=== PATIENT | male | born 1955 | race African-American/Black ===

== ENCOUNTER 2019-03-29 05:31 | Emergency (ER) | payer MEDICARE, MEDICAID ==
[~2019-03-29] VITALS: Ht 182.9 cm; Wt 114.0 kg
[~2019-03-29 05:31] MED LIST: ALLO100T PO; CARV6.2548 PO; FURO80TA3 PO; POTA20TA12 PO; SIMV20TA6 PO; TAMS0.4C31 PO; TEMA30CA PO
[2019-03-29] MEDS ORDERED: MORPHINE SULFATE 4 MG/ML CPJ (NOT FOR IM USE) IV STA (06:29)
[2019-03-29] MEDS ORDERED: ONDANSETRON HCL 4MG/2ML INJ IV STA (06:29)
[2019-03-29 06:51] LABS: CLARITY URINE CLEAR (CLEAR); COLOR URINE YELLOW (YELLOW); KETONES URINE NEGATIVE (NEGATIVE); LEUKOCYTE ESTERASE URINE NEGATIVE (NEGATIVE); NITRITE URINE NEGATIVE (NEGATIVE); OCCULT BLOOD URINE NEGATIVE (NEGATIVE); PROTEIN URINE NEGATIVE (NEGATIVE); SPECIFIC GRAVITY URINE 1.013 (1.005-1.030); UROBILINOGEN URINE 0.2 E.U./dL (0.2-1.0)
[2019-03-29 06:56] LABS: HEMATOCRIT. 37.4 % (42.0-52.0); HEMOGLOBIN. 12.2 g/dL (14.0-18.0); MEAN CORPUSCULAR HEMOGLOBIN 25.7 pg (28.0-32.0); MEAN CORPUSCULAR VOLUME 78.9 fL (80.0-94.0); MEAN PLATELET VOLUME 7.6 fl (7.4-10.4); PLATELET 183 x1000/uL (130-400); RED BLOOD CELL COUNT 4.74 mill/uL (4.7-6.1); RED CELL DISTRIBUTION WIDTH 22.6 % (11.6-14.6)
[2019-03-29 07:02] LABS: CHLORIDE 100 mEq/L (98-107)
[2019-03-29 07:28] LABS: PLATELET ESTIMATE NORMAL
[2019-03-29 07:44] VITALS: BP 109/80
== END 2019-03-29 08:00 | disposition home or self-care (01) ==
LOC: ER 05:31
DX: M54.5 Low back pain (principal); I13.0 Hypertensive heart and chronic kidney disease with heart failure and stage 1 through stage 4 chronic kidney disease, or unspecified chronic kidney disease; N18.9 Chronic kidney disease, unspecified; I50.9 Heart failure, unspecified; Z96.643 Presence of artificial hip joint, bilateral; Z79.899 Other long term (current) drug therapy
CPT/HCPCS: 36415; 72131; 80053; 81003; 85025; 96374; 96375; 99284; J2270; J2405

== ENCOUNTER 2019-06-01 16:10 | Inpatient (IN) | payer MEDICARE, MEDICAID ==
[~2019-06-01] VITALS: Ht 182.9 cm; Wt 115.7 kg
[2019-06-01 17:01] LABS: HEMATOCRIT. 27.4 % (42.0-52.0); MEAN CORPUSCULAR HEMOGLOBIN 26.1 pg (28.0-32.0); MEAN CORPUSCULAR VOLUME 79.2 fL (80.0-94.0); MEAN PLATELET VOLUME 7.6 fl (7.4-10.4); PLATELET 136 x1000/uL (130-400); RED BLOOD CELL COUNT 3.46 mill/uL (4.7-6.1); RED CELL DISTRIBUTION WIDTH 20.3 % (11.6-14.6)
[2019-06-01 17:08] LABS: CHLORIDE 112 mEq/L (98-107)
[2019-06-01] MEDS ORDERED: FUROSEMIDE 40MG/4ML VIAL IV ONE (18:00)
[2019-06-01 18:07] LABS: PLATELET ESTIMATE NORMAL
[2019-06-01] MEDS: ASPIRIN 81MG TABLET PO ONE ×2 (18:18→18:22)
[2019-06-01 21:30] VITALS: BP 126/82
[2019-06-02] VITALS: BP 111/74
[2019-06-02] MEDS: MORPHINE SULFATE 4 MG/ML CPJ (NOT FOR IM USE) IV PRN ×3 (01:55→22:02)
[2019-06-02 04:00] VITALS: BP 110/83
[2019-06-02] MEDS: FUROSEMIDE 40MG/4ML VIAL IVP SCH ×3 (05:56→21:40)
[2019-06-02 07:31] LABS: INR 1.6; PROTHROMBIN TIME 16.3 sec (9.6-11.0)
[2019-06-02] MEDS ORDERED: POTASSIUM CHLORIDE 20MEQ TABLET SR PO SCH (09:00)
[2019-06-02] MEDS ORDERED: CARVEDILOL 6.25 MG TABLET PO SCH (09:00)
[2019-06-02] MEDS ORDERED: ONDANSETRON HCL 4MG/2ML INJ IV PRN (10:00)
[2019-06-02] MEDS ORDERED: ACETAMINOPHEN 325MG TABLET PO PRN (10:00)
[2019-06-02 12:00] VITALS: BP 117/70
[2019-06-02] MEDS: ENOXAPARIN 30MG/0.3ML SYR SUBCUT SCH (15:47)
[2019-06-02] MEDS: CARVEDILOL 3.125 MG TABLET PO SCH ×2 (15:49→22:51)
[2019-06-02 16:00] VITALS: BP 112/83
[2019-06-02] MEDS ORDERED: WARFARIN SODIUM 7.5MG TABLET PO NR (18:00)
[2019-06-02] MEDS ORDERED: POTA20TA12 MT (19:46)
[2019-06-02] MEDS ORDERED: WARF6TAB22 PO (19:47)
[2019-06-02] MEDS ORDERED: FURO80TA87 MT (19:47)
[2019-06-02] MEDS ORDERED: WARF6TAB48 PO (19:53)
[2019-06-02] MEDS ORDERED: WARF3TAB28 PO ×2 (19:56→19:58)
[2019-06-02 20:00] VITALS: BP 106/80
[2019-06-03] VITALS (14 sets, daily range): BP systolic 104–142; BP diastolic 54–89
[2019-06-03] MEDS: FUROSEMIDE 40MG/4ML VIAL IVP SCH ×3 (05:07→22:00)
[2019-06-03 06:20] LABS: INR 1.4; PROTHROMBIN TIME 14.5 sec (9.6-11.0)
[2019-06-03 06:23] LABS: HEMATOCRIT. 28.4 % (42.0-52.0); HEMOGLOBIN. 9.4 g/dL (14.0-18.0); MEAN CORPUSCULAR VOLUME 78.9 fL (80.0-94.0); MEAN PLATELET VOLUME 8.3 fl (7.4-10.4); PLATELET 126 x1000/uL (130-400); RED BLOOD CELL COUNT 3.59 mill/uL (4.7-6.1); RED CELL DISTRIBUTION WIDTH 20.1 % (11.6-14.6)
[2019-06-03 06:55] LABS: PHOSPHORUS 3.5 mg/dL (2.5-4.9)
[2019-06-03] MEDS ORDERED: CEFAZOLIN 1000MG PREMIX 50 ML IV ONE ×2 (08:30→11:01)
[2019-06-03] MEDS: METOLAZONE 5MG TABLET PO SCH (09:00)
[2019-06-03] MEDS: ENOXAPARIN 30MG/0.3ML SYR SUBCUT SCH (09:00)
[2019-06-03] MEDS: CARVEDILOL 3.125 MG TABLET PO SCH ×2 (09:00→21:00)
[2019-06-03] MEDS ORDERED: SODIUM BICARBONATE 4% (2.4MEQ) 5ML VIAL IV ONE (10:51)
[2019-06-03] MEDS ORDERED: LIDOCAINE HCL 1% 20ML VIAL (Pyxis) INJ ONE (10:51)
[2019-06-03] MEDS ORDERED: HEPARIN 1000 UNITS/ML 10ML ONE (10:51)
[2019-06-03] MEDS ORDERED: FENTANYL CITRATE/PF 50MCG/ML 2ML VIAL ONE (11:01)
[2019-06-03] MEDS ORDERED: FENTANYL CITRATE/PF 50MCG/ML 2ML VIAL IV ONE (11:45)
[2019-06-03 15:20] LABS: PLATELET ESTIMATE NORMAL
[2019-06-03] MEDS: MORPHINE SULFATE 4 MG/ML CPJ (NOT FOR IM USE) IV PRN (17:02)
[2019-06-03] MEDS ORDERED: WARFARIN SODIUM 3MG TABLET PO NR (18:30)
[2019-06-04] VITALS: BP 116/65
[2019-06-04] MEDS: MORPHINE SULFATE 4 MG/ML CPJ (NOT FOR IM USE) IV PRN ×2 (00:40→11:43)
[2019-06-04 04:00] VITALS: BP 110/65
[2019-06-04 05:38] LABS: INR 1.2; PROTHROMBIN TIME 12.8 sec (9.6-11.0)
[2019-06-04 06:11] LABS: BASOPHILS % 0.6 % (0.0-2.0); EOSINOPHILS % 3.7 % (0.0-5.0); HEMATOCRIT. 29.6 % (42.0-52.0); HEMOGLOBIN. 9.6 g/dL (14.0-18.0); LYMPHOCYTES % 9.3 % (20.0-50.0); MEAN CORPUSCULAR HEMOGLOBIN 25.8 pg (28.0-32.0); MEAN CORPUSCULAR VOLUME 79.4 fL (80.0-94.0); MEAN PLATELET VOLUME 8.6 fl (7.4-10.4); MONOCYTES % 13.7 % (2.0-8.0); NEUTROPHILS % 72.7 % (40.0-76.0); PLATELET 126 x1000/uL (130-400); RED BLOOD CELL COUNT 3.72 mill/uL (4.7-6.1); RED CELL DISTRIBUTION WIDTH 20.1 % (11.6-14.6)
[2019-06-04] MEDS: FUROSEMIDE 40MG/4ML VIAL IVP SCH ×3 (06:22→20:50)
[2019-06-04 06:52] LABS: HEPATITIS B SURFACE ANTIGEN NEGATIVE
[2019-06-04 07:30] VITALS: BP 106/70
[2019-06-04] MEDS: CARVEDILOL 3.125 MG TABLET PO SCH ×2 (08:44→20:49)
[2019-06-04] MEDS: ENOXAPARIN 30MG/0.3ML SYR SUBCUT SCH (09:01)
[2019-06-04] MEDS: METOLAZONE 5MG TABLET PO SCH (09:02)
[2019-06-04 11:36] VITALS: BP 116/79
[2019-06-04 15:49] VITALS: BP 101/70
[2019-06-04] MEDS: ENOXAPARIN 120MG/0.8ML SYR SUBCUT SCH (17:00)
[2019-06-04] MEDS ORDERED: WARFARIN SODIUM 7.5MG TABLET PO NR (18:00)
[2019-06-04 20:00] VITALS: BP 112/58
[2019-06-05] VITALS: BP 112/83
[2019-06-05 04:00] VITALS: BP 119/83
[2019-06-05] MEDS: MORPHINE SULFATE 4 MG/ML CPJ (NOT FOR IM USE) IV PRN (05:38)
[2019-06-05 06:39] LABS: BASOPHILS % 0.3 % (0.0-2.0); EOSINOPHILS % 3.9 % (0.0-5.0); HEMATOCRIT. 31.1 % (42.0-52.0); HEMOGLOBIN. 10.2 g/dL (14.0-18.0); MEAN CORPUSCULAR HEMOGLOBIN 25.9 pg (28.0-32.0); MEAN CORPUSCULAR VOLUME 78.5 fL (80.0-94.0); MEAN PLATELET VOLUME 8.1 fl (7.4-10.4); MONOCYTES % 13.5 % (2.0-8.0); NEUTROPHILS % 74.3 % (40.0-76.0); PLATELET 121 x1000/uL (130-400); RED BLOOD CELL COUNT 3.96 mill/uL (4.7-6.1); RED CELL DISTRIBUTION WIDTH 19.6 % (11.6-14.6)
[2019-06-05 06:49] LABS: INR 1.3; PROTHROMBIN TIME 12.7 sec (9.6-11.0)
[2019-06-05 09:34] LABS: INR 1.2; PROTHROMBIN TIME 12.5 sec (9.6-11.0)
[2019-06-05] MEDS: FUROSEMIDE 40MG/4ML VIAL IVP SCH ×2 (10:00→21:31)
[2019-06-05] MEDS: CARVEDILOL 3.125 MG TABLET PO SCH ×2 (10:00→21:32)
[2019-06-05 12:04] VITALS: BP 114/75
[2019-06-05] MEDS: IRON SUCROSE COMPLEX 100 MG/5 ML ML IV SCH (14:00)
[2019-06-05 15:37] LABS: HEPATITIS B SURFACE AB < 3.1 mIU/mL
[2019-06-05 16:00] VITALS: BP 105/73
[2019-06-05] MEDS: ENOXAPARIN 120MG/0.8ML SYR SUBCUT SCH (17:00)
[2019-06-05] MEDS ORDERED: WARFARIN SODIUM 7.5MG TABLET PO SCH (18:00)
[2019-06-05 20:00] VITALS: BP 102/74
[2019-06-05] MEDS ORDERED: WARFARIN SODIUM 7.5MG TABLET PO NR (23:15)
[2019-06-06] VITALS: BP 102/69
[2019-06-06 04:00] VITALS: BP 108/82
[2019-06-06 07:19] LABS: BASOPHILS % 0.6 % (0.0-2.0); EOSINOPHILS % 4.6 % (0.0-5.0); HEMATOCRIT. 34.6 % (42.0-52.0); HEMOGLOBIN. 11.5 g/dL (14.0-18.0); LYMPHOCYTES % 12.5 % (20.0-50.0); MEAN CORPUSCULAR VOLUME 78.5 fL (80.0-94.0); MEAN PLATELET VOLUME 8.3 fl (7.4-10.4); MONOCYTES % 11.2 % (2.0-8.0); NEUTROPHILS % 71.1 % (40.0-76.0); PLATELET 125 x1000/uL (130-400); RED CELL DISTRIBUTION WIDTH 20.1 % (11.6-14.6)
[2019-06-06 08:00] VITALS: BP 106/70
[2019-06-06 08:55] LABS: INR 1.2; PROTHROMBIN TIME 12.1 sec (9.6-11.0)
[2019-06-06] MEDS: CARVEDILOL 3.125 MG TABLET PO SCH (09:00)
[2019-06-06] MEDS: FUROSEMIDE 40MG/4ML VIAL IVP SCH (09:48)
[2019-06-06 12:00] VITALS: BP 113/80
[2019-06-06] MEDS: IRON SUCROSE COMPLEX 100 MG/5 ML ML IV SCH (14:58)
[2019-06-06] MEDS: ENOXAPARIN 120MG/0.8ML SYR SUBCUT SCH (14:59)
[2019-06-06 16:00] VITALS: BP 111/77
[2019-06-06 16:39] VITALS: BP 113/80
[2019-06-06] MEDS ORDERED: WARFARIN SODIUM 4MG TABLET PO SCH (18:00)
== END 2019-06-06 17:00 | disposition home or self-care (01) | DRG 673 ==
LOC: ER 16:10 → EDBEDREQ 18:00 → EDBEDREQTM 19:16 → 8WST 19:16 → ENRESERV 20:00
PROVIDERS: ADMIT Internal Medicine; ATTEND Internal Medicine
PROC: 0JH63XZ Insertion of Tunneled Vascular Access Device into Chest Subcutaneous Tissue and Fascia, Percutaneous Approach (ICD-10-PCS; principal; 2019-06-03)
PROC: 02H633Z Insertion of Infusion Device into Right Atrium, Percutaneous Approach (ICD-10-PCS; 2019-06-03)
PROC: B2141ZZ Fluoroscopy of Right Heart using Low Osmolar Contrast (ICD-10-PCS; 2019-06-03)
PROC: B244ZZZ Ultrasonography of Right Heart (ICD-10-PCS; 2019-06-03)
PROC: 5A1D70Z Performance of Urinary Filtration, Intermittent, Less than 6 Hours Per Day (ICD-10-PCS; 2019-06-04)
PROC: 5A1D70Z Performance of Urinary Filtration, Intermittent, Less than 6 Hours Per Day (ICD-10-PCS; 2019-06-05)
DX: N17.9 Acute kidney failure, unspecified (principal); E43 Unspecified severe protein-calorie malnutrition; I50.43 Acute on chronic combined systolic (congestive) and diastolic (congestive) heart failure; I13.0 Hypertensive heart and chronic kidney disease with heart failure and stage 1 through stage 4 chronic kidney disease, or unspecified chronic kidney disease; E87.0 Hyperosmolality and hypernatremia; I42.9 Cardiomyopathy, unspecified; D68.2 Hereditary deficiency of other clotting factors; M48.061 Spinal stenosis, lumbar region without neurogenic claudication; I48.2 Chronic atrial fibrillation; D64.9 Anemia, unspecified; E87.8 Other disorders of electrolyte and fluid balance, not elsewhere classified; N18.4 Chronic kidney disease, stage 4 (severe); D69.6 Thrombocytopenia, unspecified; E78.5 Hyperlipidemia, unspecified; G89.29 Other chronic pain; I27.20 Pulmonary hypertension, unspecified; I34.0 Nonrheumatic mitral (valve) insufficiency; N40.0 Benign prostatic hyperplasia without lower urinary tract symptoms; M10.9 Gout, unspecified; Z96.649 Presence of unspecified artificial hip joint; E66.01 Morbid (severe) obesity due to excess calories; I48.0 Paroxysmal atrial fibrillation; Z95.0 Presence of cardiac pacemaker; Z79.01 Long term (current) use of anticoagulants; Z99.2 Dependence on renal dialysis; Z68.34 Body mass index [BMI] 34.0-34.9, adult; Z71.3 Dietary counseling and surveillance
CPT/HCPCS: 36415; 71045; 76937; 77001; 80048; 82728; 83540; 83550; 83735; 83880; 84100; 84484; 86705; 86706; 86803; 87340; 93005; 93970; 96374; 97110; 97116; 97162; 97530; 99152; 99153; 99285; C1750; C1769; J0690; J1644; J1650; J1940; J2270; J3010; J3490; J7050; G0500

== ENCOUNTER 2019-06-17 03:32 | Emergency (ER) | payer MEDICARE, MEDICAID ==
[~2019-06-17] VITALS: Ht 190.5 cm; Wt 136.0 kg
[~2019-06-17 03:32] MED LIST changes: -ALLO100T PO; -CARV6.2548 PO; -FURO80TA3 PO; +FURO80TA87 MT; +POTA20TA12 MT; -POTA20TA12 PO; -SIMV20TA6 PO; -TAMS0.4C31 PO; -TEMA30CA PO; +WARF3TAB28 PO; +WARF6TAB22 PO; +WARF6TAB48 PO
[2019-06-17 03:34] VITALS: BP 140/87
[2019-06-17] MEDS ORDERED: DEXTROSE 50% WATER 50ML SYRINGE IV ONE ×2 (05:51→05:57)
[2019-06-17] MEDS ORDERED: CALCIUM CHLORIDE 1GM/10ML SYR IV ONE (05:51)
[2019-06-17] MEDS ORDERED: EPINEPHRINE 0.1MG/ML (1:10,000) 10ML SYR ONE ×2 (05:51→06:01)
[2019-06-17] MEDS ORDERED: AMIODARONE HCL 50MG/ML 3ML VIAL IV ONE (05:51)
[2019-06-17] MEDS ORDERED: SODIUM BICARBONATE 8.4% MEQ/ML 50ML VIAL IV ONE (05:51)
[2019-06-17] MEDS ORDERED: INSULIN REGULAR (HUMULIN R) 300UNITS/3ML ONE (05:59)
== END 2019-06-17 09:11 | disposition expired ==
LOC: ER 03:32
DX: I46.9 Cardiac arrest, cause unspecified (principal); N18.6 End stage renal disease; I50.9 Heart failure, unspecified; Z99.2 Dependence on renal dialysis; Z95.0 Presence of cardiac pacemaker; Z79.899 Other long term (current) drug therapy
CPT/HCPCS: 31500; 92950; 99285; J0282; J1815; J3490